=== PATIENT | female | born 1955 | race Caucasian/White ===

== ENCOUNTER → 2016-10-08 | Outpatient (CLI) | payer BC ==
--- NOTE | 2016-10-08 11:51 | XR ---
EXAM TYPE: LUMBAR SPINE X RAY SERIES COMPARISON: NONE HISTORY: Lower back pain TECHNIQUE: 3 views are submitted. FINDINGS: Alignment is anatomic. The pedicles are intact. The transverse processes are intact. There is no s pondylolysis or spondylolisthesis. Facet arthropathy at levels L2-S1. Moderate to severe degenerativ e disc disease at levels L3-S1. IMPRESSION: 1. Multilevel degenerative disc disease.
== END | disposition home or self-care (01) ==
LOC: RADXRMAIN 11:21
PROVIDERS: ATTEND Family Medicine
DX: M51.36 Other intervertebral disc degeneration, lumbar region (principal)
CPT/HCPCS: 72100

== ENCOUNTER → 2017-05-04 | Outpatient (CLI) | payer BC ==
[2017-05-04 17:20] LABS: Non-African American GFR(MDRD) >60 (>60 ml/min/1.73 sqM)
--- NOTE | 2017-05-06 01:30 | MR ---
EXAMINATION TYPE: MR lumbar spine wo/w con DATE OF EXAM: 05/04/2017 COMPARISON: NONE HISTORY: LBP, radiates into both thighs x 2-3 years; uterine ca 2014 TECHNIQUE: Multiplanar, multisequence images of the lumbar spine were acquired utilizing 12 mL intravenous Gadav ist gadolinium contrast. Lumbar vertebra have normal alignment. Disc spaces are fairly normal. There is no spinal stenosis. Th e lumbar neural foramina appear widely patent. There is no evidence of lumbar disc herniation. There is small posterior disc bulging at T11-T12. Lumbar nerve roots appear normal. Upper sacroiliac joints appear normal. There is no paraspinal mass. The contrast images show no pathologic enhancement. Ther e are multiple bilateral renal cortical and parapelvic cysts. IMPRESSION: Small posterior disc bulging at T11-12. Otherwise negative exam. Renal cysts.
== END | disposition home or self-care (01) ==
LOC: RADMRIMAIN 16:17
PROVIDERS: ATTEND Family Medicine
DX: M54.5 Low back pain (principal)
CPT/HCPCS: 82565; 72158; 36415; A9581

== ENCOUNTER → 2019-04-25 | Outpatient (CLI) | payer MEDICARE ==
--- NOTE | 2019-04-26 09:08 | US ---
EXAMINATION TYPE: US kidneys/renal and bladder DATE OF EXAM: 04/25/2019 COMPARISON: MRI 05/04/2007 CLINICAL HISTORY: N28.1 Cyst of kidney. Noted on outside MRI; HT 5'5, WT 270lbs per patient EXAM MEASUREMENTS: Right Kidney: 9.2 x 4.0 x 4.3 cm Left Kidney: 9.2 x 5.0 x 5.8 cm Post Void Residual Volume: 1.4 mL Right Kidney: lower pole cortical cyst seen = 0.9 x 0.6 x 0.7cm Left Kidney: No hydronephrosis or masses seen Bladder: wnl Bilateral Jets seen: Yes Normal Post Void Residual: Yes IMPRESSION: 1. Hypoechoic lesion in the right kidney too small to accurately characterize but statistically most likely related to a cyst appears be present on the MRI of 05/04/2017
== END ==
LOC: RADUSMAIN 17:42
PROVIDERS: ATTEND Family Medicine
DX: N28.9 Disorder of kidney and ureter, unspecified (principal)
CPT/HCPCS: 76770

== ENCOUNTER 2019-05-05 13:34 | Emergency (ER) | payer MEDICARE ==
[2019-05-05 14:13] VITALS: BP 150/75; PULSE 70; RESP 18; TEMP 97.3
--- NOTE | 2019-05-05 15:18 | ED ---
Back Pain HPI - General Chief Complaint: Back Pain/Injury Stated Complaint: Back pain Time Seen by Provider: 05/05/19 15:12 Source: patient Limitations: no limitations - History of Present Illness Initial Comments: 63-year-old female presenting to the emergency Department for chief complaint of left leg pain. Patient states that she had a recent MRI and was told she had piriformis syndrome of the right leg. Patient states that the MRI did not show significant disease of the back. Patient states that since she went to the chiropractor on Wednesday (as referred to by primary physician) she states taht since then she has had left leg pain that begins in the middle of the buttocks and radiates down just proximal to the knee joint. Patient states it seemed to make her symptoms worse. Patient denies any loss of sensation loss of bowel bladder control urinary retention history of IV drug use or active cancer. Patient denies any falls or trauma to the back or leg. Patient denies any coolness pallor or loss of sensation of the extremity. Denies fever or flu like symptoms. Patient denies any loss of muscle strength stating she has difficulty secondary to pain ambulating but is able to walk and fully weight bear. Patient denies any other complaints. Remaining ROS (-). Upon arrival patient appears well there is no signs of acute distress. - Related Data Previous Rx's Medication Instructions Recorded HYDROcodone/APAP 5-325MG [Garrison 1 tab PO Q4HR PRN 3 Days #18 tab 05/05/19 5-325] Allergies Allergy/AdvReac Type Severity Reaction Status Date / Time ketamine Allergy Anaphylaxis Verified 05/05/19 14:13 morphine Allergy Anaphylaxis Verified 05/05/19 14:13 Penicillins Allergy Rash/Hives Verified 05/05/19 14:13 Review of Systems ROS Statement: Those systems with pertinent positive or pertinent negative responses have been documented in the HPI. ROS Other: All systems not noted in ROS Statement are negative. Past Medical History Past Medical History: Hypertension History of Any Multi-Drug Resistant Organisms: None Reported Past Surgical History: Hysterectomy, Orthopedic Surgery Additional Past Surgical History / Comment(s): right hip Past Psychological History: No Psychological Hx Reported Smoking Status: Never smoker Past Alcohol Use History: None Reported Past Drug Use History: None Reported General Exam - General Exam Comments Initial Comments: General: The patient is awake and alert, in no distress, and does not appear acutely ill. Eye: +3 mm pupils are equal, round and reactive to light, extra-ocular movements are intact. No nystagmus. There is normal conjunctiva bilaterally. No signs of icterus. Ears, nose, mouth and throat: There are moist mucous membranes and no oral lesions. Neck: The neck is supple, there is no tenderness or JVD. Cardiovascular: There is a regular rate and rhythm. No murmur, rub or gallop is appreciated. Respiratory: Lungs are clear to auscultation, respirations are non-labored, breath sounds are equal. No wheezes, stridor, rales, or rhonchi. Gastrointestinal: Soft, non-distended, non-tender abdomen without masses or organomegaly noted. There is no rebound or guarding present. No CVA tenderness. Bowel sounds are unremarkable. Musculoskeletal: Inspection of the back no midline tenderness. Patient with cervical thoracic or lumbar spine. Patient has +2/5 DTR patellar of the left LE. Normal ROM, no tenderness of the hips, knees and ankles b/l. Strength 5/5. Sensation intact including saddle region. Pulses equal bilaterally 2+. Able to ambulate. Point localized tenderness to the mid buttock. Neurological: A&O x 3. CN II-XII intact grossly, There are no obvious motor or sensory deficits. Coordination appears grossly intact. Speech is normal. Skin: Skin is warm and dry and no rashes or lesions are noted. Psychiatric: Cooperative, appropriate mood & affect, normal judgment. Limitations: no limitations Course Vital Signs 05/05/19 14:09 Temperature 97.3 F L Pulse Rate 70 Respiratory 18 Rate Blood Pressure 150/75 O2 Sat by Pulse 100 Oximetry Medical Decision Making - Medical Decision Making 63yo female presenting for cc of left leg pain. Hx of piriformis recent MRI. Patient has has no clinical symptoms of cauda equina. Patient has full strength of LE b/l, sensation and able to weight bear. Patient states she does not feel imaging is necessary and more so presented for symptomatic treatment. Patient given norco in ER and outpatient prescription. patient states she previous tolerated. Patient appears well, no red flags on history or PE. At this time patient is requesting discharge. Recommend patient follow up with orthopedic surgery as well as her primary care provider return parameters were discussed at length the patient who verbalizes understanding I did discuss the case in detail by attending provider Dr Anderson who was agreeable with care plan and discharge. Disposition Clinical Impression: Back pain, Left leg pain Disposition: HOME SELF-CARE Condition: Good Instructions (If sedation given, give patient instructions): Acute Low Back Pain (ED), Piriformis Syndrome (ED) Additional Instructions: Please use medication as discussed, DISCONTINUE TRAMADOL while taking Garrison. Please follow-up with family doctor in the next 2 days, and orthopedics as discussed. Please return to emergency room if the symptoms increase or worsen or for any other concerns-symptoms increase or worsening, loss of bowel/bladder control/loss of sensation or any of the symptoms discussed. Prescriptions: HYDROcodone/APAP 5-325MG [Garrison 5-325] 1 tab PO Q4HR PRN 3 Days #18 tab PRN Reason: Severe Pain Is patient prescribed a controlled substance at d/c from ED?: Yes When asked, does pt state using other controlled substances?: Yes If prescribed controlled substance>3 days was MAPS reviewed?: Prescribed <3 Days If opioid is for acute pain is fill amount 7 days or less?: Yes If Rx opioid, was Start Talking consent form obtained?: Yes Referrals: Jorge L Funez DO [Primary Care Provider] - 1-2 days Rancho Hurt DO [Doctor of Osteopathic Medicine] - 1-2 days Sandor Velasquez DO [STAFF PHYSICIAN] - 1-2 days Time of Disposition: 16:18
[2019-05-05] MEDS ORDERED: HYDROcodone/APAP 7.5-325MG 1 EACH TAB PO ONE (15:41)
[2019-05-05] MEDS ORDERED: KETOROLAC 60 MG/2 ML VIAL IM STA (15:41)
== END 2019-05-05 16:28 | disposition home or self-care (01) ==
LOC: EC 13:34
DX: M54.9 Dorsalgia, unspecified (principal); M79.605 Pain in left leg; Z88.0 Allergy status to penicillin; Z88.5 Allergy status to narcotic agent; Z88.4 Allergy status to anesthetic agent
CPT/HCPCS: 99283; 96372; J1885

== ENCOUNTER → 2023-01-07 | Outpatient (CLI) | payer MEDICARE ==
--- NOTE | 2023-01-08 07:20 | MM ---
Reason for Exam: Screening (asymptomatic). Last screening mammogram was performed 12 month(s) ago. Patient History: Menarche at age 10. Patient has no children. Left ovary removed at age 59. Right ovary removed at age 59. Hysterectomy at age 59. Postmenopausal. Risk Values: Fariha 5 year model risk: 1.9%. NCI Lifetime model risk: 5.9%. Tissue Density: The breast tissue is almost entirely fat. Findings: Analyzed By CAD. There is no suspicious group of microcalcifications or new suspicious mass in either breast. Overall Assessment: Negative, BI-RAD 1 Management: Screening Mammogram of both breasts in [address] [facility] will attempt to contact patient to return for supplemental views and ultrasound if indicated. Patient should continue monthly self-breast exams. A clinical breast exam by your physician is recommended on an annual basis. This exam should not preclude additional follow-up of suspicious palpable abnormalities. Note on Fariha scores and lifetime risk: 1. A Fariha score greater than 3% is considered moderate risk. If this is the case, consider specialist referral to assess eligibility for a risk reducing agent. 2. If overall lifetime risk for the development of breast cancer is 20% or higher, the patient may qualify for future screening with alternating mammogram and breast MRI. Electronically signed and approved by: Stewart Hansen DO
== END | disposition home or self-care (01) ==
LOC: RADMAMWWP 09:24
PROVIDERS: ATTEND Internal Medicine
DX: Z12.31 Encounter for screening mammogram for malignant neoplasm of breast (principal); Z78.0 Asymptomatic menopausal state
CPT/HCPCS: 77063; 77067

== ENCOUNTER → 2024-01-13 | Outpatient (CLI) | payer MEDICARE ==
--- NOTE | 2024-01-17 15:50 | MM ---
Reason for Exam: Screening (asymptomatic). Last screening mammogram was performed 12 month(s) ago. Patient History: Menarche at age 10. Patient has no children. Left ovary removed at age 59. Right ovary removed at age 59. Hysterectomy at age 59. Postmenopausal. Risk Values: Fariha 5 year model risk: 1.9%. NCI Lifetime model risk: 5.6%. Prior Study Comparison: 01/01/2022 Bilateral Screening Mammogram, [facility]. 01/07/2023 Bilateral MG 3D screening mammo w/cad, [facility]. Tissue Density: The breasts are almost entirely fatty. Findings: Analyzed By CAD. The pattern is symmetrical. No suspicious groups of microcalcifications, spiculated or lobular masses, architectural distortion or other secondary signs of malignancy are mammographically apparent. Overall Assessment: Benign, BI-RAD 2 Management: Screening Mammogram of both breasts in 1 year. A negative mammogram report should not preclude additional follow up of suspicious palpable abnormalities. Patient should continue monthly self breast exam. A clinical breast exam by your physician is recommended on an annual basis and results should be correlated with mammographic findings. Note on Fariha scores and lifetime risk: 1. A Fariha score greater than 3% is considered moderate risk. If this is the case, consider specialist referral to assess eligibility for a risk reducing agent. 2. If overall lifetime risk for the development of breast cancer is 20% or higher, the patient may qualify for future screening with alternating mammogram and breast MRI. Electronically signed and approved by: Jorge L Hicks D.O. Radiologis
--- NOTE | 2024-01-19 09:01 | BD ---
EXAMINATION TYPE: Axial Bone Density DATE OF EXAM: 01/13/2024 CLINICAL HISTORY: 68 years old Female. ICD-10 CODE: M85.851 OSTEOPENIA Height: 63 Weight: 252 FRAX RISK QUESTIONS: History of Fracture in Adulthood: yes Secondary Osteoporosis: yes 3. Menopause before 45: yes, at [age] RISK FACTORS HISTORY OF: hx of lt pelvis fracture two times, Hip Fracture left pelvis area x2 times History of Wrist Fracture: right x2 times in her youth Surgery to both hips, bilat THRs, both as an adult MEDICATIONS: pain meds, bp med, vit d, and calcium, cholesterol meds EXAM MEASUREMENTS: Bone mineral densitometry was performed using the AVA.ai System. Bone mineral density as measured about the Lumbar spine is: ----- L1-L4(G/cm2): 1.123 T Score Values are as follows: ----- L1: -1.4 ----- L2: -1.5 ----- L3: -0.5 ----- L4: 0.8 ----- L1-L4: -0.5 Z Score Values are as follows: ----- L1: -0.9 ----- L2: -1.0 ----- L3: 0.0 ----- L4: 1.3 ----- L1-L4: 0.0 Bone mineral density is her first dexa today, baseline. bilat THRs, hips not scanned and no frax percentage available. Bone mineral density about the L Wrist (g/cm2): 0.518 T Score values are as follows: -----Dist. R+U: -1.5 -----Prox. R+U: -1.0 -----Radius total: -1.6 Z Score values are as follows: -----Dist. R+U: 0.4 -----Prox. R+U: 0.8 -----Radius total: 0.2 Bone mineral density is a baseline study today. IMPRESSION: Osteopenia (T Score between -2.5 and -1). There is slightly increased risk of fracture and the patient may be considered for treatment. Re-Screen 2-5 years. NOTE: T-SCORE=SD OF THE YOUNG ADULT MEAN.
== END | disposition home or self-care (01) ==
LOC: RADMAMWWP 10:08
PROVIDERS: ATTEND Internal Medicine
DX: Z12.31 Encounter for screening mammogram for malignant neoplasm of breast (principal); M85.89 Other specified disorders of bone density and structure, multiple sites; Z78.0 Asymptomatic menopausal state
CPT/HCPCS: 77063; 77067; 77080

== ENCOUNTER 2024-02-16 07:59 | Emergency (ER) | payer MEDICARE ==
[2024-02-16 08:11] VITALS: TEMP 98
[2024-02-16] MEDS: MECLIZINE 25 MG TAB PO STA (09:16)
[2024-02-16] MEDS: METOCLOPRAMIDE 5 MG/ML 2 ML VIAL IVP STA (09:17)
[2024-02-16 09:20] LABS: Basophils % (A) 0 %; Eosinophils # (A) 0.1 k/uL (0-0.7); Eosinophils % (A) 2 %; HCT 44.6 % (34.0-46.0); HGB 14.5 gm/dL (11.4-16.0); Lymphocytes # (A) 1.4 k/uL (1.0-4.8); Lymphocytes % (A) 21 %; MCH 29.8 pg (25.0-35.0); MCHC 32.4 g/dL (31.0-37.0); Mean Platelet Volume 8.8; Monocytes # (A) 0.4 k/uL (0-1.0); Monocytes % (A) 5 %; Neutrophils # (A) 4.9 k/uL (1.3-7.7); Neutrophils % (A) 71 %; Platelet Count 237 k/uL (150-450); RBC 4.85 m/uL (3.80-5.40); RDW 13.6 % (11.5-15.5); WBC 6.9 k/uL (3.8-10.6)
--- NOTE | 2024-02-16 09:21 | ED ---
General Adult HPI - General Chief complaint: Dizziness Stated complaint: vertigo Time Seen by Provider: 02/16/24 08:20 Source: patient, RN notes reviewed, old records reviewed Mode of arrival: ambulatory Limitations: no limitations - History of Present Illness Initial comments: This is a 68-year-old female who presents to the emergency department compla ining that yesterday she was dizzy and it was difficult to walk had to hold onto things. Patient states this morning when she woke up she continued to feel dizzy at 3 AM and when she got out of bed she became very dizzy she was walking and the dizziness got worse and she fell into the window and hit her head she did not hurt her head she did not lose consciousness. Patient never fell to the ground. Patient states she still remains dizzy and became nauseated and at that time decided to come to the emergency department. Patient has had no history of similar. Patient denies a headache but she says there is a little bit of a fullness in the front of her head. Patient denies any upper respiratory symptoms. Patient denies any sinusitis issues. Patient denies any facial tenderness. Patient denies any palpitations or chest pain. Patient has any difficulty breathing or shortness of breath. - Related Data Home Medications Medication Instructions Recorded Confirmed Acetaminophen [Tylenol Arthritis] 1,300 mg PO BID@0600,2200 02/16/24 02/16/24 Acetaminophen [Tylenol Arthritis] 650 mg PO DAILY@1400 02/16/24 02/16/24 Atorvastatin [Lipitor] 40 mg PO HS 02/16/24 02/16/24 Cholecalciferol [Vitamin D3 (125 125 mcg PO DAILY 02/16/24 02/16/24 Mcg = 5000 Iu)] Meloxicam [Mobic] 15 mg PO DAILY 02/16/24 02/16/24 Metoprolol Succinate [Metoprolol 25 mg PO HS 02/16/24 02/16/24 Succinate ER] Multivitamins, Thera [Multivitamin 1 tab PO DAILY 02/16/24 02/16/24 (formulary)] amLODIPine [Norvasc] 10 mg PO DAILY 02/16/24 02/16/24 Previous Rx's Medication Instructions Recorded Meclizine [Antivert] 25 mg PO TID #20 tab 02/16/24 Allergies Allergy/AdvReac Type Severity Reaction Status Date / Time ketamine Allergy Anaphylaxis Verified 02/16/24 10:25 morphine Allergy Anaphylaxis Verified 02/16/24 10:25 Penicillins Allergy Rash/Hives Verified 02/16/24 10:25 Review of Systems ROS Statement: Those systems with pertinent positive or pertinent negative responses have been documented in the HPI. ROS Other: All systems not noted in ROS Statement are negative. Past Medical History Past Medical History: Hypertension History of Any Multi-Drug Resistant Organisms: None Reported Past Surgical History: Hysterectomy, Orthopedic Surgery Additional Past Surgical History / Comment(s): right hip Past Psychological History: No Psychological Hx Reported Smoking Status: Never smoker Past Alcohol Use History: None Reported Past Drug Use History: None Reported General Exam - General Exam Comments Initial Comments: GENERAL: Patient is well-developed and well-nourished. Patient is nontoxic and well- hydrated and is in mild distress. ENT: Neck is soft and supple. No significant lymphadenopathy is noted. Oropharynx is clear. Moist mucous membranes. Neck has full range of motion without eliciting any pain. EYES: The sclera were anicteric and conjunctiva were pink and moist. Extraocular movements were intact and pupils were equal round and reactive to light. Eyelids were unremarkable. PULMONARY: Unlabored respirations. Good breath sounds bilaterally. No audible rales rhonchi or wheezing was noted. CARDIOVASCULAR: There is a regular rate and rhythm without any murmurs gallops or rubs. ABDOMEN: Soft and nontender with normal bowel sounds. SKIN: Skin is clear with no lesions or rashes and otherwise unremarkable. NEUROLOGIC: Patient is alert and oriented x3. Cranial nerves II through XII are grossly intact. Motor and sensory are also intact. Normal speech, volume and content. Symmetrical smile. Finger-nose testing was normal bilaterally MUSCULOSKELETAL: Normal extremities with adequate strength and full range of motion. LYMPHATICS: No significant lymphadenopathy is noted PSYCHIATRIC: Normal psychiatric evaluation. Limitations: no limitations Course Vital Signs 02/16/24 02/16/24 02/16/24 08:08 09:10 10:00 Temperature 98 F Pulse Rate 64 80 63 Respiratory 20 20 16 Rate Blood Pressure 151/80 150/78 140/70 O2 Sat by Pulse 97 98 97 Oximetry Medical Decision Making - Medical Decision Making EKG is interpreted by myself but EKG shows a sinus rhythm at 69 bpm VT interval 193 QRS is 68 QT interval 362 QTc is 381. Patient's EKG shows no ST segment elevation or depression Was pt. sent in by a medical professional or institution (CINDY Gannon, COOPERATIVE EDUCATION COORDINATOR, urgent care, hospital, or senior care...) When possible be specific @ -No Did you speak to anyone other than the patient for history (EMS, parent, family, police, friend...)? What history was obtained from this source @ -No Did you review nursing and triage notes (agree or disagree)? Why? @ -I reviewed and agree with nursing and triage notes Were old charts reviewed (outside hosp., previous admission, EMS record, old EKG, old radiological studies, urgent care reports/EKG's, senior care records)? Report findings @ -No old charts were reviewed Differential Diagnosis? @ -Differential Dizziness: Benign paroxysmal positional Vertigo, Menieres disease, otitis media, acoustic neuroma, vertebrobasilar insufficiency, cerebellar stroke, encephalitis, hypovolemic, arrhythmia, coronary artery syndrome, anemia, this is not meant to be an all-inclusive list EKG interpreted by me (3pts min.). @ -As above X-rays interpreted by me (1pt min.). @ -Chest x-ray shows no acute abnormality CT interpreted by me (1pt min.). @ -CT shows no acute abnormality U/S interpreted by me (1pt. min.). @ -None done What testing was considered but not performed or refused? (CT, X-rays, U/S, labs)? Why? @ -None What meds were considered but not given or refused? Why? @ -None Did you discuss the management of the patient with other professionals (professionals i.e. CINDY Gannon, COOPERATIVE EDUCATION COORDINATOR, lab, RT, psych nurse, social work instructor, frame coverer, teacher, sheriff officer, case sealer)? Give summary @ -No Was smoking cessation discussed for >3mins.? @ -No Was critical care preformed (if so, how long)? @ -No Were there social determinants of health that impacted care today? How? (Homelessness, low income, unemployed, alcoholism, drug addiction, transportation, low edu. Level, literacy, decrease access to med. care, nursing home, rehab)? @ -No Was there de-escalation of care discussed even if they declined (Discuss DNR or withdrawal of care, Hospice)? DNR status @ -No What co-morbidities impacted this encounter? (DM, HTN, Smoking, COPD, CAD, Cancer, CVA, ARF, Chemo, Hep., AIDS, mental health diagnosis, sleep apnea, morbid obesity)? @ -None Was patient admitted / discharged? Hospital course, mention meds given and route, prescriptions, significant lab abnormalities, going to OR and other pertinent info. @ -Patient was given Antivert Valium and Reglan and his symptoms resolved completely. Patient was able to get up and ambulate without problem without dizziness. Undiagnosed new problem with uncertain prognosis? @ -No Drug Therapy requiring intensive monitoring for toxicity (Heparin, Nitro, Insulin, Cardizem)? @ -No Were any procedures done? @ -No Diagnosis/symptom? @ -Vertigo Acute, or Chronic, or Acute on Chronic? @ -Acute Uncomplicated (without systemic symptoms) or Complicated (systemic symptoms)? @ -Complicated Side effects of treatment? @ -No Exacerbation, Progression, or Severe Exacerbation? @ -No Poses a threat to life or bodily function? How? (Chest pain, [place], NH, pneumonia, PE, COPD, DKA, ARF, appy, cholecystitis, CVA, Diverticulitis, Homicidal, Suicidal, threat to staff... and all critical care pts) @ -No - Lab Data Result diagrams: 02/16/24 09:00 02/16/24 09:00 Lab Results 02/16/24 02/16/24 02/16/24 Range/Units 09:00 09:00 09:00 WBC 6.9 (3.8-10.6) k/uL RBC 4.85 (3.80-5.40) m/uL Hgb 14.5 (11.4-16.0) gm/dL Hct 44.6 (34.0-46.0) % MCV 92.0 (80.0-100.0) fL MCH 29.8 (25.0-35.0) pg MCHC 32.4 (31.0-37.0) g/dL RDW 13.6 (11.5-15.5) % Plt Count 237 (150-450) k/uL MPV 8.8 Neutrophils % 71 % Lymphocytes % 21 % Monocytes % 5 % Eosinophils % 2 % Basophils % 0 % Neutrophils # 4.9 (1.3-7.7) k/uL Lymphocytes # 1.4 (1.0-4.8) k/uL Monocytes # 0.4 (0-1.0) k/uL Eosinophils # 0.1 (0-0.7) k/uL Basophils # 0.0 (0-0.2) k/uL PT 10.1 (10.0-12.5) sec INR 0.9 (<1.2) APTT 25.8 (22.0-30.0) sec Sodium 142 (137-145) mmol/L Potassium 4.5 (3.5-5.1) mmol/L Chloride 107 (98-107) mmol/L Carbon Dioxide 29 (22-30) mmol/L Anion Gap 6 mmol/L BUN 18 H (7-17) mg/dL Creatinine 0.57 (0.52-1.04) mg/dL Est GFR (CKD-EPI)AfAm >90 (>60 ml/min/1.73 sqM) Est GFR (CKD-EPI)NonAf >90 (>60 ml/min/1.73 sqM) Glucose 112 H (74-99) mg/dL Calcium 9.5 (8.4-10.2) mg/dL Magnesium 1.6 (1.6-2.3) mg/dL Total Bilirubin 0.9 (0.2-1.3) mg/dL AST 28 (14-36) U/L ALT 18 (4-34) U/L Alkaline Phosphatase 48 (38-126) U/L Troponin I (0.000-0.034) ng/mL Total Protein 7.0 (6.3-8.2) g/dL Albumin 4.5 (3.5-5.0) g/dL 02/16/24 Range/Units 09:00 WBC (3.8-10.6) k/uL RBC (3.80-5.40) m/uL Hgb (11.4-16.0) gm/dL Hct (34.0-46.0) % MCV (80.0-100.0) fL MCH (25.0-35.0) pg MCHC (31.0-37.0) g/dL RDW (11.5-15.5) % Plt Count (150-450) k/uL MPV Neutrophils % % Lymphocytes % % Monocytes % % Eosinophils % % Basophils % % Neutrophils # (1.3-7.7) k/uL Lymphocytes # (1.0-4.8) k/uL Monocytes # (0-1.0) k/uL Eosinophils # (0-0.7) k/uL Basophils # (0-0.2) k/uL PT (10.0-12.5) sec INR (<1.2) APTT (22.0-30.0) sec Sodium (137-145) mmol/L Potassium (3.5-5.1) mmol/L Chloride (98-107) mmol/L Carbon Dioxide (22-30) mmol/L Anion Gap mmol/L BUN (7-17) mg/dL Creatinine (0.52-1.04) mg/dL Est GFR (CKD-EPI)AfAm (>60 ml/min/1.73 sqM) Est GFR (CKD-EPI)NonAf (>60 ml/min/1.73 sqM) Glucose (74-99) mg/dL Calcium (8.4-10.2) mg/dL Magnesium (1.6-2.3) mg/dL Total Bilirubin (0.2-1.3) mg/dL AST (14-36) U/L ALT (4-34) U/L Alkaline Phosphatase (38-126) U/L Troponin I <0.012 (0.000-0.034) ng/mL Total Protein (6.3-8.2) g/dL Albumin (3.5-5.0) g/dL Disposition Clinical Impression: Vertigo Disposition: HOME SELF-CARE Condition: Good Instructions (If sedation given, give patient instructions): Vertigo (ED) Prescriptions: Meclizine [Antivert] 25 mg PO TID #20 tab Is patient prescribed a controlled substance at d/c from ED?: No Referrals: Shad Carcamo MD [Primary Care Provider] - 1-2 days Time of Disposition: 11:20
[2024-02-16 09:25] LABS: INR 0.9 (<1.2); Partial Thromboplastin Time 25.8 sec (22.0-30.0); Prothrombin Time 10.1 sec (10.0-12.5)
[2024-02-16 09:31] LABS: ALT 18 U/L (4-34); AST 28 U/L (14-36); African American GFR (CKD) >90 (>60 ml/min/1.73 sqM); Albumin 4.5 g/dL (3.5-5.0); Alkaline Phosphatase 48 U/L (38-126); Anion Gap 6 mmol/L; Blood Urea Nitrogen 18 mg/dL (7-17); Calcium 9.5 mg/dL (8.4-10.2); Carbon Dioxide 29 mmol/L (22-30); Chloride 107 mmol/L (98-107); Glucose 112 mg/dL (74-99); Magnesium 1.6 mg/dL (1.6-2.3); Non-African American GFR(CKD) >90 (>60 ml/min/1.73 sqM); Potassium 4.5 mmol/L (3.5-5.1); Sodium 142 mmol/L (137-145); Total Bilirubin 0.9 mg/dL (0.2-1.3)
--- NOTE | 2024-02-16 09:55 | XR ---
EXAMINATION TYPE: XR chest 2V DATE OF EXAM: 02/16/2024 COMPARISON: None HISTORY: 68-year-old female with chest pain TECHNIQUE: PA and lateral views FINDINGS: The cardiomediastinal silhouette, aorta, and pulmonary vasculature are within normal limits. Lungs an d pleural spaces are clear. IMPRESSION: No acute cardiopulmonary process.
--- NOTE | 2024-02-16 10:00 | CT ---
EXAMINATION TYPE: CT brain wo con DATE OF EXAM: 02/16/2024 COMPARISON: None HISTORY: 68-year-old female Dizziness TECHNIQUE: Examination was done in axial plane without intravenous contrast. Coronal and sagittal r econstructions performed. CT DLP: 1052.4 mGycm Automated exposure control for dose reduction was used. FINDINGS: There is no evidence of acute intracranial hemorrhage, acute ischemic changes, mass, mass-effect, or extra-axial fluid collection. There is no effacement of cerebral sulci or basal subarachnoid cister ns. There is no hydrocephalus. There is no midline shift. Byrne-white matter distinction is preserv ed. Mild bifrontal cerebral cortical volume loss. Small 6 mm white matter hypodensity right centrum semio keysha. Benign basal ganglia calcifications. Paranasal sinuses and mastoid air cells well pneumatized. Orbits and globes are intact. IMPRESSION: Mild bifrontal atrophy. Either a prominent perivascular space versus an old lacunar infarct of the ri ght centrum semiovale. Otherwise, no acute intracranial abnormality seen.
[2024-02-16 10:04] VITALS: RESP 16
[2024-02-16 11:43] VITALS: BP 135/68; PULSE 68
== END 2024-02-16 11:42 | disposition home or self-care (01) ==
LOC: EC 07:59
DX: R42 Dizziness and giddiness (principal); Z88.0 Allergy status to penicillin; Z88.5 Allergy status to narcotic agent; Z88.8 Allergy status to other drugs, medicaments and biological substances
CPT/HCPCS: 36415; 93005; 80053; 83735; 84484; 85025; 85610; 85730; 71046; 70450; 99285; 96374; 96375; J2765; J3360

== ENCOUNTER → 2024-03-21 | Outpatient (CLI) | payer MEDICARE ==
--- NOTE | 2024-04-13 12:36 | MR ---
Patient: Thao Estes Ordering Physician: Unknown, Unknown ID: [id number] Phone, Pager: P laila: N/A Pager: N/A : 1955 Age/Gender: 68Y, F Primary Location: N/A Procedure: MRI BRAIN W/W O Study Date: 03/21/2024 7:25:00 AM EXAMINATION TYPE: MR brain w con DATE OF EXAM: 03/22/2024 COMPARISON: CT brain 02/16/2024 HISTORY: Vertigo CONTRAST: Performed utilizing 11 mL intravenous Gadavist gadolinium contrast. TECHNIQUE: Multiplanar, multiecho imaging on a 3.0 Emily magnet is performed through the brain. Stud y is performed within 24 hours of arrival to the hospital. The craniovertebral junction is normal. The pituitary is normal. Diffusion-weighted imaging is performed. No abnormal hyperintensity is present to suggest an acute i ntracranial infarct or acute ischemic change. There is a punctate hyperintensity in the right frontal centrum semiovale and the periventricular reg ion. Punctate hyperintensity in subcortical white matter left frontal lobe. These are not out of prop ortion for the patient's age. There is a hyperintense T2, hypointense inversion recovery sequence change in the right parietal occi pital deep white matter. Differential diagnosis includes old lacunar infarct or perivascular space. N o suspicious enhancement is evident within this region or elsewhere within the visualized brain. Ventricles and sulci are appropriate for the patient age. Mastoid air cells are clear. Paranasal sinuses within the field of view are clear. IMPRESSION: 1. 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 Differential could inclu de benign perivascular space. 2. Couple of very punctate T2 and inversion recovery weighted deep white matter changes most likely o n the basis of chronic white matter ischemic change. This is not out of proportion to the patient's a ge. 3. No suspicious acute changes to account for vertigo.
== END | disposition home or self-care (01) ==
LOC: RADMRIMAIN 08:00
PROVIDERS: ATTEND Internal Medicine
DX: H81.4 Vertigo of central origin (principal); Z86.73 Personal history of transient ischemic attack (TIA), and cerebral infarction without residual deficits
CPT/HCPCS: 70553; A9585

== ENCOUNTER → 2024-03-24 | Outpatient (CLI) | payer MEDICARE ==
--- NOTE | 2024-04-14 08:03 | CA ---
Transthoracic Echo Report Name: Thao Owen Age: 68 Gender: F : 1955 Exam Date: 03/24/2024 11:42 Exam Location: [facility] Ht (in): 65 Wt (lb): 250 Ordering Physician: Attending/Referring Phys: Slp Teacher Nataliia Wilson RDCS Procedure CPT: Indications: Cardiac Hx: Technical Quality: Good Contrast 1: Total Dose (mL): Contrast 2: Total Dose (mL): MEASUREMENTS (Male / Female) Normal Values 2D ECHO LV Diastolic Diameter PLAX 4.7 cm 4.2 - 5.9 / 3.9 - 5.3 cm LV Systolic Diameter PLAX 3.3 cm IVS Diastolic Thickness 0.9 cm 0.6 - 1.0 / 0.6 - 0.9 cm LVPW Diastolic Thickness 1.0 cm 0.6 - 1.0 / 0.6 - 0.9 cm LV Relative Wall Thickness 0.4 LVOT Diameter 1.9 cm LV Diastolic Volume MOD BP 99.8 cm??? 67 - 155 / 56 - 104 cm??? LV Systolic Volume MOD BP 41.9 cm??? 22 - 58 / 19 - 49 cm??? LV Ejection Fraction MOD BP 58.1 % >= 55 % LV Cardiac Index MOD BP 1710.3 cm???/min???m??? LV Diastolic Volume MOD 4C 102.3 cm??? LV Systolic Volume MOD 4C 48.3 cm??? LV Ejection Fraction MOD 4C 52.8 % LV Cardiac Index MOD 4C 1592.4 cm???/min???m??? LV Diastolic Length 4C 7.8 cm LV Systolic Length 4C 6.9 cm LV Diastolic Volume MOD 2C 95.4 cm??? LV Systolic Volume MOD 2C 30.5 cm??? LV Ejection Fraction MOD 2C 68.1 % LV Cardiac Index MOD 2C 1915.3 cm???/min???m??? LV Diastolic Length 2C 7.7 cm LV Systolic Length 2C 5.8 cm LA Volume 62.7 cm??? 18 - 58 / 22 - 52 cm??? LA Volume Index 26.8 cm???/m??? 16 - 28 cm???/m??? Ascending Aorta Diameter 3.2 cm DOPPLER AV Peak Velocity 140.3 cm/s AV Peak Gradient 7.9 mmHg AV Mean Velocity 91.2 cm/s AV Mean Gradient 3.7 mmHg AV Velocity Time Integral 31.8 cm LVOT Peak Velocity 103.1 cm/s LVOT Peak Gradient 4.3 mmHg LVOT Velocity Time Integral 24.9 cm LVOT Stroke Volume 72.9 cm??? LVOT Stroke Volume Index 33.5 ml/m??? LVOT Cardiac Index 2149.6 cm???/min???m??? AV Area Cont Eq vti 2.3 cm??? AV Area Cont Eq pk 2.1 cm??? MV Area PHT 4.7 cm??? Mitral E Point Velocity 64.4 cm/s Mitral A Point Velocity 80.3 cm/s Mitral E to A Ratio 0.8 MV Deceleration Time 160.9 ms TR Peak Velocity 251.2 cm/s TR Peak Gradient 25.2 mmHg Right Atrial Pressure 5.0 mmHg Pulmonary Artery Systolic Pressu 30.2 mmHg Right Ventricular Systolic Press 30.2 mmHg PV Peak Velocity 79.2 cm/s PV Peak Gradient 2.5 mmHg FINDINGS Left Ventricle Left ventricular ejection fraction is estimated at 55-60 %. Left ventricular cavity size normal. No obvious regional wall motion abnormalities. Right Ventricle Normal right ventricular size and function. Right ventricular systolic pressure within normal limits. Right Atrium Normal right atrial size. Left Atrium Mildly increased left atrial volume. Mitral Valve Structurally normal mitral valve. No evidence for mitral valve prolapse. No mitral stenosis. Mild mitral regurgitation. Aortic Valve Trileaflet aortic valve. No aortic valve stenosis or regurgitation. Tricuspid Valve Structurally normal tricuspid valve. No tricuspid stenosis. Trace tricuspid regurgitation. Pulmonic Valve Structurally normal pulmonic valve. No pulmonic stenosis. Trace pulmonic regurgitation. Pericardium No pericardial effusion. Aorta Normal size aortic root and proximal ascending aorta. CONCLUSIONS 1. Normal left ventricular size and systolic function 2. Mild mitral regurgitation Previewed by: Dr. Brando Castro MD (Electronically Signed) Final Date: 24 March 2024 12:25
== END | disposition home or self-care (01) ==
LOC: RADECHMAIN 11:33
PROVIDERS: ATTEND Internal Medicine
DX: H81.4 Vertigo of central origin (principal); I34.0 Nonrheumatic mitral (valve) insufficiency
CPT/HCPCS: 93306

== ENCOUNTER → 2025-01-10 | Outpatient (CLI) | payer MEDICARE ==
[2025-01-10 16:11] LABS: Basophils # (A) 0.03 X 10*3/uL (0.00-0.10); Basophils % (A) 0.4 %; Eosinophils # (A) 0.18 X 10*3/uL (0.04-0.35); Eosinophils % (A) 2.5 %; HCT 43.8 % (37.2-46.3); HGB 14.2 g/dL (12.0-15.0); Lymphocytes # (A) 1.94 X 10*3/uL (0.90-5.00); Lymphocytes % (A) 27.1 %; MCH 29.1 pg (27.0-32.0); MCHC 32.4 g/dL (32.0-37.0); MCV 89.8 FL (80.0-97.0); Mean Platelet Volume 10.6 FL (9.5-12.2); Monocytes # (A) 0.51 X 10*3/uL (0.20-1.00); Monocytes % (A) 7.1 %; NRBC Per 100 WBC 0 X 10*3/uL (0.00-0.01); Neutrophils # (A) 4.49 X 10*3/uL (1.80-7.70); Neutrophils % (A) 62.6 %; Platelet Count 246 X 10*3/uL (140-440); RBC 4.88 X 10*6/uL (4.10-5.20); WBC 7.17 X 10*3/uL (4.50-10.00)
[2025-01-10 17:22] LABS: Creatine Kinase 149 U/L (26-186); Magnesium 1.6 mg/dL (1.5-2.4); Uric Acid 4.7 mg/dL (2.9-7.7)
[2025-01-10 17:39] LABS: ALT 20 U/L (8-44); AST 23 U/L (13-35); Albumin 4.6 g/dL (3.8-4.9); Albumin/Globulin Ratio 2.09 Ratio (1.60-3.17); Alkaline Phosphatase 46 U/L (41-126); BUN/Creat Ratio 21.86 Ratio (12.00-20.00); Blood Urea Nitrogen 15.3 mg/dL (9.0-27.0); Calcium 9.5 mg/dL (8.7-10.3); Carbon Dioxide 24.3 mmol/L (21.6-31.8); Chloride 106 mmol/L (96-109); Chol/HDL Ratio 2.77 Ratio; Globulin 2.2 g/dL (1.6-3.3); Glucose 117 mg/dL (70-110); LDL Cholesterol,Calculated 76.7 mg/dL (0.0-131.0); Potassium 4.1 mmol/L (3.5-5.5); Sodium 143 mmol/L (135-145); Total Bilirubin 0.6 mg/dL (0.3-1.2); Total Protein 6.8 g/dL (6.2-8.2)
== END | disposition home or self-care (01) ==
LOC: LABWHC1 11:25
PROVIDERS: ATTEND Internal Medicine
DX: I10 Essential (primary) hypertension (principal); E78.2 Mixed hyperlipidemia; M85.851 Other specified disorders of bone density and structure, right thigh
CPT/HCPCS: 36415; 80053; 80061; 82306; 82550; 83036; 83735; 84443; 84550; 85025

== ENCOUNTER → 2025-01-15 | Outpatient (CLI) | payer MEDICARE ==
--- NOTE | 2025-01-15 10:13 | MM ---
Reason for Exam: Screening (asymptomatic). Last screening mammogram was performed 12 month(s) ago. Patient History: Menarche at age 10. Patient has no children. Left ovary removed at age 59. Right ovary removed at age 59. Hysterectomy at age 59. Postmenopausal. Risk Values: Fariha 5 year model risk: 1.9%. NCI Lifetime model risk: 5.4%. Prior Study Comparison: 01/01/2022 Bilateral Screening Mammogram, [facility]. 01/07/2023 Bilateral MG 3D screening mammo w/cad, [facility]. 01/13/2024 Bilateral MG 3D screening mammo w/cad, [facility]. Tissue Density: The breasts are almost entirely fatty. Findings: Analyzed By CAD. There is no suspicious group of microcalcifications or new suspicious mass in either breast. Overall Assessment: Negative, BI-RAD 1 Management: Screening Mammogram of both breasts in 1 year. Patient should continue monthly self-breast exams. A clinical breast exam by your physician is recommended on an annual basis. This exam should not preclude additional follow-up of suspicious palpable abnormalities. Note on Fariha scores and lifetime risk: 1. A Fariha score greater than 3% is considered moderate risk. If this is the case, consider specialist referral to assess eligibility for a risk reducing agent. 2. If overall lifetime risk for the development of breast cancer is 20% or higher, the patient may qualify for future screening with alternating mammogram and breast MRI. [facility], , 01/15/2025 10:11 AM. Electronically signed and approved by: Tor Brown M.D. Radiologist
== END | disposition home or self-care (01) ==
LOC: RADMAMWWP 09:35
PROVIDERS: ATTEND Internal Medicine
DX: Z12.31 Encounter for screening mammogram for malignant neoplasm of breast (principal); R92.313 Mammographic fatty tissue density, bilateral breasts; Z78.0 Asymptomatic menopausal state
CPT/HCPCS: 77063; 77067